=== PATIENT | male | born 1980 | race American Indian/Alaskan Native ===

== ENCOUNTER 2016-05-23 22:25 | Emergency (ER) | payer SELFPAY ==
[2016-05-24] MEDS ORDERED: TYLENOL/CODEINE PO ONE (06:10)
--- NOTE | 2016-05-24 06:25 | Emergency Department Report ---
HPI - General Chief Complaint: Upper Respiratory Infection Time Seen by Provider: 05/24/16 06:12 - HPI HPI: 35-year-old male with no prior medical history presents to ED complaining of a nonproductive to productive cough 4 days. Patient states that a week ago he felt safe with generalized body aches and low-grade fever. Patient states he's been taking some cold medication with minor relief. Patient states yesterday he began coughing so much that he had an episode of vomiting. Patient states cough has been progressively worse. Patient states that there relieves the coughing. Patient nausea/abdominal pain/chest pain/shortness of breath/ ED Past Medical Hx - Past Medical History Previous Medical History?: No - Surgical History Past Surgical History?: Yes Additional Surgical History: prk lasix - Medications Home Medications: Home Medications Medication Instructions Recorded Confirmed Last Taken Type Acetaminophen with Codeine 5 ml PO TID #90 ml 05/24/16 Unknown Rx [Acetaminophen-Codeine ORAL LIQ] Ascorbic Acid [Vitamin C] 500 mg PO BID #24 tab.chew 05/24/16 Unknown Rx Ibuprofen [Motrin] 600 mg PO Q8H PRN #30 tablet 05/24/16 Unknown Rx ED Review of Systems ROS: Stated complaint: COUGH/HEADACHE Other details as noted in HPI Constitutional: denies: chills, fever Eyes: denies: eye pain, eye discharge, vision change ENT: congestion. denies: ear pain, throat pain, dental pain, hearing loss, epistaxis Respiratory: cough. denies: shortness of breath, wheezing Cardiovascular: denies: chest pain, palpitations Endocrine: no symptoms reported Gastrointestinal: vomiting. denies: abdominal pain, nausea, diarrhea Genitourinary: denies: urgency, dysuria, frequency, hematuria Musculoskeletal: denies: back pain, joint swelling, arthralgia Skin: denies: rash, lesions Neurological: denies: headache, weakness, numbness, paresthesias, confusion, abnormal gait Psychiatric: denies: anxiety, depression Hematological/Lymphatic: denies: easy bleeding, easy bruising, swollen glands Physical Exam - Physical Exam Vital Signs: Vital Signs 05/24/16 00:29 Temperature 98.6 F Pulse Rate 90 Respiratory 18 Rate Blood Pressure 136/87 O2 Sat by Pulse 99 Oximetry Physical Exam: GENERAL: Alert and oriented x3, no apparent distress, Normal Gait, atraumatic. HEAD: Head is normocephalic and a-traumatic. EYES: Extra ocular muscles are intact. Pupils are equal, round, and reactive to light and accommodation. EARS: symetrical, atraumatic, non tender, ear canal clear and moderate cerumen, tympanic membrance non inflamed. gross auditory nml bilaterally. NOSE: Nose symetrical, Nontender,Nares appeared normal. MOUTH:Mouth is well hydrated and without lesions Patent airways. Intermittent coughing during exam NECK: Supple. Non edematous, No carotid bruits. No lymphadenopathy or thyromegaly. LUNGS: Symetrical with respiration, No wheezing, no rales or crackles, CTAB. HEART: S1, S2 present, regular rate and rhythm without murmur, no rubs, no gallops. ABDOMEN: No organomegaly was noted,Positive bowel sounds, soft, and non- distended. . Nontender to palpation on all Quadrants, NO CVA tenderness. EXTREMITIES/MUSCULOSKELETAL: No cyanosis, clubbing, rash, lesions or edema. Full ROM bilaterally. UE/LE Pulses 2+ bilaterally. NEUROLOGIC: No focal Deficit, Cranial nerves II through XII are grossly intact. No loss of sensation, PSYCHIATRIC: Mood is congruent with affect, denies suicidal or homicidal ideations. SKIN: Warm and dry, No lesions, No ulceration or induration present. ED Course Vital Signs 05/24/16 00:29 Temperature 98.6 F Pulse Rate 90 Respiratory 18 Rate Blood Pressure 136/87 O2 Sat by Pulse 99 Oximetry ED Medical Decision Making - Medical Decision Making 34-year-old male presents with bronchitis ED course: Patient received 10 mL of Tylenol with codeine. Discussed with patient symptomatic relief. Discussed cough suppressants as home medication. Discussed continued Motrin and Tylenol as admitted for fever pain. Discussed the follow-up referral. Vital signs are stable patient is in no acute or respiratory distress. Critical care attestation.: If time is entered above; I have spent that time in minutes in the direct care of this critically ill patient, excluding procedure time. ED Disposition Clinical Impression: Bronchitis, Flu-like symptoms Disposition: DISCHARGED TO HOME OR SELFCARE Is pt being admited?: No Does the pt Need Aspirin: No Condition: Stable Instructions: Acute Bronchitis (ED), Influenza (ED) Prescriptions: Acetaminophen with Codeine [Acetaminophen-Codeine ORAL LIQ] 5 ml PO TID #90 ml Ascorbic Acid [Vitamin C] 500 mg PO BID #24 tab.chew Ibuprofen [Motrin] 600 mg PO Q8H PRN #30 tablet PRN Reason: Pain Referrals: PRIMARY CARE, [Primary Care Provider] - 3-5 Days TAMI RENEE MD [Referring] - 3-5 Days SANDRA EAST MD [Referring] - 3-5 Days [facility] [Outside] - 3-5 Days [facility] [Outside] - 3-5 Days [facility] [Outside] - 3-5 Days Forms: Work/School Release Form(ED) Time of Disposition: 06:31
[2016-05-24 06:58] VITALS: BP 132/73
== END 2016-05-24 06:52 | disposition home or self-care (01) ==
LOC: ED 22:25
DX: J40 Bronchitis, not specified as acute or chronic (principal)
CPT/HCPCS: 99282